=== PATIENT | female | born 1955 | race Caucasian/White ===

== ENCOUNTER 2016-03-05 10:04 | Inpatient (IN) | payer OTHER ==
[2016-03-05] MEDS ORDERED: SODIUM CHLORIDE 0.9% 10 ML FLUSH FLUSH PRN (10:22)
[2016-03-05 10:38] LABS: MPV 8.3 fL (7.4-10.4)
[2016-03-05 10:52] LABS: BLOOD UREA NITROGEN 13 MG/DL (7-17); CALCIUM 9.3 MG/DL (8.4-10.2); CALCULATED OSMOLALITY 271 MOs/Kg (270-290); CHLORIDE 104 mEq/L (98-107); GLUCOSE 158 MG/DL (70-99); SODIUM LEVEL 139 mEq/L (137-146); TOTAL PROTEIN 7.6 G/DL (6.3-8.2)
[2016-03-05 11:01] LABS: PARTIAL THROMB. TIME 24.7 SEC (22-35)
[2016-03-05 11:18] LABS: SEG NEUTROPHIL 89 % (45-76)
--- NOTE | 2016-03-05 11:30 | DIRPT ---
COUGH CLINICAL DATA: Cough, congestion, shortness of breath. EXAM: CHEST 2 VIEW COMPARISON: Chest x-ray dated 02/26/2016. FINDINGS: New opacity within the left mid lung region is highly suspicious for pneumonia. Lungs otherwise clear. No pleural effusion. No pneumothorax. Lung volumes are hyperexpanded suggesting COPD. Heart size is normal. Osseous structures about the chest are unremarkable. IMPRESSION: 1. New opacity within the left mid lung, atelectasis versus pneumonia, favor pneumonia. 2. Hyperexpanded lungs suggesting COPD. Electronically Signed By: Corby James M.D. On: 03/05/2016 11:28
[2016-03-05] MEDS ORDERED: CEFTRIAXONE 1 GM in D5W 100 ML IV ONE (11:46)
[2016-03-05] MEDS ORDERED: AZITHROMYCIN 500 MG in D5W 250 ML IV ONE (11:46)
[2016-03-05] MEDS ORDERED: MORPHINE 4 MG/ML INJECTION IV ONE (11:46)
[2016-03-05] MEDS ORDERED: NS 1,000 ML IV ONE ×2 (11:47→12:01)
--- NOTE | 2016-03-05 11:48 | EDPRACDOC ---
<George Mason - Last Filed: 03/05/16 15:29> - General Information Information Source: Patient, Family Mode of Arrival: Car - History of Present Illness Onset: 1 DAY HPI: PT PRESENTS TODAY WITH COUGH/CONGESTION, FATIGUE, CHEST WALL PAIN X WEEKS. STATES SHE WAS SEEN AT PCP AND HAD CXR DONE THAT WAS NEGATIVE. DENIES HUSTON, FEVER , ABD PAIN, N/V/D. NO APPARENT DISTRESS. PT COPD AND CONTINUES TO SMOKE. Chest Pain Location: Reports: Left Chest Pain Radiation: Reports: None Symptoms Occur: Reports: Gradually, With light exertion Cardiac Risk Factors: Reports: Smoker, Hyperlipidemia PE Risk Factors: Reports: None Medications within 24 Hours: Reports: Aspirin Prehospital Care: Reports: None Pain Came On: Reports: Gradually Pain Status: Present Now Pain Description: Reports: Sharp, Stabbing Pain Severity: Moderate Pain Worsens With: Reports: Coughing, Movement Pain Improves With: Reports: Rest, Other (ASA) Associated Signs and Symptoms: Reports: SOB <Qi Davis - Last Filed: 03/05/16 16:12> - General Information Chief Complaint: Chest Pain Stated Complaint: CP/ DIFFICULTY BREATHING Time Seen by Provider: 03/05/16 10:21 Home Medications: Home Medications Cholecalciferol (Vitamin D3) [D-2000] 1,000 unit PO DAILY 07/22/13 Mometasone/Formoterol [Dulera 200 Mcg/5 Mcg Inhaler] 2 puff IH BID PRN 07/22/13 Multivitamin [Daily Vitamin] 1 each PO DAILY 07/22/13 Acetaminophen with Codeine [TYLENOL WITH CODEINE; Capital with Codeine] 5 ml PO Q4-6H PRN #120 ml 03/05/16 Albuterol Sulfate [Proventil Hfa] 1 - 2 puff INH Q4H PRN #1 each 03/05/16 Cefdinir 300 mg PO BID #20 capsule 03/05/16 Pravastatin Sodium 10 mg PO HS 03/05/16 Prednisone [Deltasone, Orasone] 2 tabs PO DAILY #20 tab 03/05/16 Allergies/Adverse Reactions: Allergies Allergy/AdvReac Type Severity Reaction Status Date / Time Sulfa (Sulfonamide Allergy Rash-Genera Verified 03/05/16 10:18 Antibiotics) [facility] Past Medical History - History Reviewed Yes Nurses notes reviewed and agree except as marked - Patient Medical History Cardiac History: Reports: Hypercholesterolemia Respiratory History: Reports: COPD Psychological History: Denies: Depression Systemic History: Denies: Cancer - Social Medical History Smoking Status: Heavy tobacco smoker (5 or more cigarettes/day or daily pipe/ cigar) <Qi Davis - Last Filed: 03/05/16 16:12> EDM Review of Systems - Review of Systems ROS Negative Except as Marked: Yes All systems reviewed and were negative except as marked Constitutional: Fatigue, Weakness Eyes: No Symptoms Reported Ears: No Symptoms Reported Throat: No Symptoms Reported Nose: No Symptoms Reported Respiratory: Cough, Shortness of Breath Cardiovascular: Chest Pain Gastrointestinal: No Symptoms Reported Neurological: No Symptoms Reported Musculoskeletal: Chestwall Integumentary: No Symptoms Reported <Qi Davis - Last Filed: 03/05/16 16:12> - Physical Exam Last recorded Vital Signs: Last Vital Signs Temp 98.8 F 03/05/16 10:10 Pulse 103 03/05/16 13:47 Resp 24 03/05/16 13:47 BP 103/57 L 03/05/16 13:47 Pulse Ox 94 03/05/16 13:47 Oxygen Pulse Oxygen Saturation 94 O2 Device Nasal Cannula Oxygen Flow Rate 2 Fraction of Inspired Oxygen ( FIO2) <George Mason - Last Filed: 03/05/16 15:29> - Physical Exam Constitutional: Alert (Awake), No apparent distress Oriented to: Time, Person, Place Last recorded Vital Signs: Last Vital Signs Temp 98.8 F 03/05/16 10:10 Pulse 88 03/05/16 11:34 Resp 18 03/05/16 10:26 BP 100/57 L 03/05/16 11:34 Pulse Ox 94 03/05/16 11:34 Oxygen Pulse Oxygen Saturation 94 O2 Device Room Air Oxygen Flow Rate Fraction of Inspired Oxygen ( FIO2) - HEENT Head: Normal Eye Exam: Normal Oropharynx: Normal Tympanic Membrane: Normal ENT EAC: Normal Nose: No Symptoms Reported Neck: Normal, Denies Pain, Midline - Respiratory/Cardiovascular Respiratory: Normal - CTA Cardiovascular: Normal - GI Palpation: Normal Tenderness: Non tender - Musculoskeletal Back: Normal Extremities: Normal - Integumentary Skin: Normal Lymphatics: Normal - Neurologic Cerebellar: Normal Mood Description: Normal Thought: Coherent Perception: Normal <Susan,Qi K - Last Filed: 03/05/16 16:12> ED Chest Pain Exam - Respiratory/Cardiovascular Respiratory: Normal - CTA Cardiovascular/Chest: Normal Radial Pulse: Normal Chest Palpation: Normal <Qi Davis - Last Filed: 03/05/16 16:12> - Results 03/05/16 10:30 03/05/16 10:30 WBC 22.9 xk/uL (3.8-10.8) H 03/05/16 10:30 RBC 4.31 xM/uL (4.20-5.40) 03/05/16 10:30 Hgb 13.6 g/dL (12.0-16.0) 03/05/16 10:30 Hct 40.7 % (36-47) 03/05/16 10:30 MCV 95 fL (81-99) 03/05/16 10:30 MCH 31.6 pg (27-32) 03/05/16 10:30 MCHC 33.4 g/dl (33-36) 03/05/16 10:30 RDW 12.7 % (11.5-14.5) 03/05/16 10:30 Plt Count 227 xk/uL (130-400) 03/05/16 10:30 MPV 8.3 fL (7.4-10.4) 03/05/16 10:30 Neut % (Auto) Cancelled 03/05/16 10:30 Lymph % (Auto) Cancelled 03/05/16 10:30 [place] % (Auto) Cancelled 03/05/16 10:30 Eos % (Auto) Cancelled 03/05/16 10:30 Baso % (Auto) Cancelled 03/05/16 10:30 Absolute Neuts (auto) Cancelled 03/05/16 10:30 Absolute Lymphs (auto) Cancelled 03/05/16 10:30 Seg Neuts % (Manual) 89 % (45-76) H 03/05/16 10:30 Band Neutrophils % 0 % (0-5) 03/05/16 10:30 Lymphocytes % (Manual) 10 % (17-44) L 03/05/16 10:30 Monocytes % (Manual) 1 % (0-10) 03/05/16 10:30 Absolute Neutrophils 20.38 xk/uL (1.7-8.2) H 03/05/16 10:30 Absolute Lymphocytes 2.29 xk/uL (0.65-4.75) 03/05/16 10:30 Platelet Estimate Norm (NORMAL) 03/05/16 10:30 RBC Morphology Norm 03/05/16 10:30 PT 10.4 SEC (9.2-11.2) 03/05/16 10:30 INR 1.0 03/05/16 10:30 APTT 24.7 SEC (22-35) 03/05/16 10:30 Puncture Site Left radial 03/05/16 12:01 pH 7.460 pH UNITS (7.35-7.45) H 03/05/16 12:01 pCO2 32.0 mmHg (35-45) L 03/05/16 12:01 pO2 74.0 mmHg (80-100) L 03/05/16 12:01 HCO3 22.8 MMOL/L (22-26) 03/05/16 12:01 Total CO2 23.8 MMOL/L (23-27) 03/05/16 12:01 Base Excess -0.3 (+/- 2) 03/05/16 12:01 FiO2 % 21% 03/05/16 12:01 Specimen Drawn By Kasgl 03/05/16 12:01 Sodium 139 mEq/L (137-146) 03/05/16 10:30 Potassium 4.1 mEq/L (3.5-5.1) 03/05/16 10:30 Chloride 104 mEq/L (98-107) 03/05/16 10:30 Carbon Dioxide 23 mMOL/L (22-33) 03/05/16 10:30 Anion Gap 16 mEq/L (8-16) 03/05/16 10:30 BUN 13 MG/DL (7-17) 03/05/16 10:30 Creatinine 0.80 MG/DL (0.52-1.04) 03/05/16 10:30 Estimated GFR (MDRD) > 60 mL/min (>=60) 03/05/16 10:30 Glucose 158 MG/DL (70-99) H 03/05/16 10:30 Calculated Osmolality 271 MOs/Kg (270-290) 03/05/16 10:30 Calcium 9.3 MG/DL (8.4-10.2) 03/05/16 10:30 Total Bilirubin 0.5 MG/DL (0.2-1.3) 03/05/16 10:30 AST 24 IU/L (14-36) 03/05/16 10:30 ALT 28 IU/L (9-52) 03/05/16 10:30 Alkaline Phosphatase 97 IU/L (55-165) 03/05/16 10:30 Troponin I < 0.01 ng/mL (<.04) 03/05/16 13:00 Total Protein 7.6 G/DL (6.3-8.2) 03/05/16 10:30 Albumin 4.4 G/DL (3.5-5.0) 03/05/16 10:30 Urine Color Yellow 03/05/16 13:45 Urine Clarity Clear 03/05/16 13:45 Urine pH 6.0 (5.0-8.0) 03/05/16 13:45 Ur Specific [place] 1.010 (1.003-1.035) 03/05/16 13:45 Urine Protein Neg (NEG/TRACE) 03/05/16 13:45 Urine Glucose (UA) Neg (NEGATIVE) 03/05/16 13:45 Urine Ketones Neg (NEGATIVE) 03/05/16 13:45 Urine Occult Blood Neg (NEG/TRACE) 03/05/16 13:45 Urine Nitrite Neg (NEGATIVE) 03/05/16 13:45 Urine Bilirubin Neg (NEGATIVE) 03/05/16 13:45 Urine Urobilinogen 0.2 MG/DL (0-1) 03/05/16 13:45 Ur Leukocyte Esterase Neg (NEGATIVE) 03/05/16 13:45 Urine RBC 0-2 (0-5) 03/05/16 13:45 Urine WBC 0-2 (0-5) 03/05/16 13:45 Ur Epithelial Cells Occ 03/05/16 13:45 Urine Bacteria Few (NEG/FEW) 03/05/16 13:45 Lab Results 03/05/16 03/05/16 03/05/16 13:45 13:00 12:01 WBC RBC Hgb Hct MCV MCH MCHC RDW Plt Count MPV Neut % (Auto) Lymph % (Auto) [place] % (Auto) Eos % (Auto) Baso % (Auto) Absolute Neuts (auto) Absolute Lymphs (auto) Seg Neuts % (Manual) Band Neutrophils % Lymphocytes % (Manual) Monocytes % (Manual) Absolute Neutrophils Absolute Lymphocytes Platelet Estimate RBC Morphology PT INR APTT Puncture Site Left radial pH 7.460 H pCO2 32.0 L pO2 74.0 L HCO3 22.8 Total CO2 23.8 Base Excess -0.3 FiO2 % 21% Specimen Drawn By Kasgl Sodium Potassium Chloride Carbon Dioxide Anion Gap BUN Creatinine Estimated GFR (MDRD) Glucose Calculated Osmolality Calcium Total Bilirubin AST ALT Alkaline Phosphatase Troponin I < 0.01 Total Protein Albumin Urine Color Yellow Urine Clarity Clear Urine pH 6.0 Ur Specific [place] 1.010 Urine Protein Neg Urine Glucose (UA) Neg Urine Ketones Neg Urine Occult Blood Neg Urine Nitrite Neg Urine Bilirubin Neg Urine Urobilinogen 0.2 Ur Leukocyte Esterase Neg Urine RBC 0-2 Urine WBC 0-2 Ur Epithelial Cells Occ Urine Bacteria Few 03/05/16 03/05/16 03/05/16 10:30 10:30 10:30 WBC 22.9 H RBC 4.31 Hgb 13.6 Hct 40.7 MCV 95 MCH 31.6 MCHC 33.4 RDW 12.7 Plt Count 227 MPV 8.3 Neut % (Auto) Cancelled Lymph % (Auto) Cancelled [place] % (Auto) Cancelled Eos % (Auto) Cancelled Baso % (Auto) Cancelled Absolute Neuts (auto) Cancelled Absolute Lymphs (auto) Cancelled Seg Neuts % (Manual) 89 H Band Neutrophils % 0 Lymphocytes % (Manual) 10 L Monocytes % (Manual) 1 Absolute Neutrophils 20.38 H Absolute Lymphocytes 2.29 Platelet Estimate Norm RBC Morphology Norm PT 10.4 INR 1.0 APTT 24.7 Puncture Site pH pCO2 pO2 HCO3 Total CO2 Base Excess FiO2 % Specimen Drawn By Sodium 139 Potassium 4.1 Chloride 104 Carbon Dioxide 23 Anion Gap 16 BUN 13 Creatinine 0.80 Estimated GFR (MDRD) > 60 Glucose 158 H Calculated Osmolality 271 Calcium 9.3 Total Bilirubin 0.5 AST 24 ALT 28 Alkaline Phosphatase 97 Troponin I < 0.01 Total Protein 7.6 Albumin 4.4 Urine Color Urine Clarity Urine pH Ur Specific [place] Urine Protein Urine Glucose (UA) Urine Ketones Urine Occult Blood Urine Nitrite Urine Bilirubin Urine Urobilinogen Ur Leukocyte Esterase Urine RBC Urine WBC Ur Epithelial Cells Urine Bacteria Laboratory Results - last 24 hr 03/05/16 03/05/16 03/05/16 10:30 10:30 10:30 WBC 22.9 H RBC 4.31 Hgb 13.6 Hct 40.7 MCV 95 MCH 31.6 MCHC 33.4 RDW 12.7 Plt Count 227 MPV 8.3 Neut % (Auto) Cancelled Lymph % (Auto) Cancelled [place] % (Auto) Cancelled Eos % (Auto) Cancelled Baso % (Auto) Cancelled Absolute Neuts (auto) Cancelled Absolute Lymphs (auto) Cancelled Seg Neuts % (Manual) 89 H Band Neutrophils % 0 Lymphocytes % (Manual) 10 L Monocytes % (Manual) 1 Absolute Neutrophils 20.38 H Absolute Lymphocytes 2.29 Platelet Estimate Norm RBC Morphology Norm PT 10.4 INR 1.0 APTT 24.7 Puncture Site pH pCO2 pO2 HCO3 Total CO2 Base Excess FiO2 % Specimen Drawn By Sodium 139 Potassium 4.1 Chloride 104 Carbon Dioxide 23 Anion Gap 16 BUN 13 Creatinine 0.80 Estimated GFR (MDRD) > 60 Glucose 158 H Calculated Osmolality 271 Calcium 9.3 Total Bilirubin 0.5 AST 24 ALT 28 Alkaline Phosphatase 97 Troponin I < 0.01 Total Protein 7.6 Albumin 4.4 Urine Color Urine Clarity Urine pH Ur Specific [place] Urine Protein Urine Glucose (UA) Urine Ketones Urine Occult Blood Urine Nitrite Urine Bilirubin Urine Urobilinogen Ur Leukocyte Esterase Urine RBC Urine WBC Ur Epithelial Cells Urine Bacteria 03/05/16 03/05/16 03/05/16 12:01 13:00 13:45 WBC RBC Hgb Hct MCV MCH MCHC RDW Plt Count MPV Neut % (Auto) Lymph % (Auto) [place] % (Auto) Eos % (Auto) Baso % (Auto) Absolute Neuts (auto) Absolute Lymphs (auto) Seg Neuts % (Manual) Band Neutrophils % Lymphocytes % (Manual) Monocytes % (Manual) Absolute Neutrophils Absolute Lymphocytes Platelet Estimate RBC Morphology PT INR APTT Puncture Site Left radial pH 7.460 H pCO2 32.0 L pO2 74.0 L HCO3 22.8 Total CO2 23.8 Base Excess -0.3 FiO2 % 21% Specimen Drawn By Kasgl Sodium Potassium Chloride Carbon Dioxide Anion Gap BUN Creatinine Estimated GFR (MDRD) Glucose Calculated Osmolality Calcium Total Bilirubin AST ALT Alkaline Phosphatase Troponin I < 0.01 Total Protein Albumin Urine Color Yellow Urine Clarity Clear Urine pH 6.0 Ur Specific [place] 1.010 Urine Protein Neg Urine Glucose (UA) Neg Urine Ketones Neg Urine Occult Blood Neg Urine Nitrite Neg Urine Bilirubin Neg Urine Urobilinogen 0.2 Ur Leukocyte Esterase Neg Urine RBC 0-2 Urine WBC 0-2 Ur Epithelial Cells Occ Urine Bacteria Few Laboratory Results 03/05/16 10:30 03/05/16 10:30 <George Mason - Last Filed: 03/05/16 15:29> - Action ASA given in the ED: No Aspirin therapy held due to: Other-specify below* (PT TOOK AT HOME) - Re-evaluation Re-evaluation 1 Re-evaluation Time: 12:07 PT BEGAN HAVING SVT AT THIS TIME; PT HAS PMH OF AND HAS NEEDED ADENOSINE IN THE PAST. DR. MASON NOTIFIED. Re-evaluation 2 Re-evaluation Time: 12:23 ADENOSINE 6 MG GIVEN AND PT TOLERATED WELL; PT CONVERTED TO SINUS TACH AT RATE OF 107 BPM. Re-evaluation 3 Re-evaluation Time: 13:37 PT RESTING. NO REPEAT EPISODES OF SVT SINCE FIRST DOSE OF ADENOSINE. PT HAS KNOWN HISTORY OF SAME. CASE DISCUSSED WITH DR. MASON AND PT OK FOR HOME. Re-evaluation 4 Re-evaluation Time: 16:11 UPON DISCHARGE, PT RETURNED TO SVT AND BECAME HYPOXIC AT 88%; SHE DID RESOLVE AGAIN WITH 6 MG OF ADENOSINE, BUT IT IS CLEAR AT THIS POINT THAT PT WILL NEED TO STAY FOR ADMISSION. - Results 03/05/16 10:30 03/05/16 10:30 WBC 22.9 xk/uL (3.8-10.8) H 03/05/16 10:30 RBC 4.31 xM/uL (4.20-5.40) 03/05/16 10:30 Hgb 13.6 g/dL (12.0-16.0) 03/05/16 10:30 Hct 40.7 % (36-47) 03/05/16 10:30 MCV 95 fL (81-99) 03/05/16 10:30 MCH 31.6 pg (27-32) 03/05/16 10:30 MCHC 33.4 g/dl (33-36) 03/05/16 10:30 RDW 12.7 % (11.5-14.5) 03/05/16 10:30 Plt Count 227 xk/uL (130-400) 03/05/16 10:30 MPV 8.3 fL (7.4-10.4) 03/05/16 10:30 Neut % (Auto) Cancelled 03/05/16 10:30 Lymph % (Auto) Cancelled 03/05/16 10:30 [place] % (Auto) Cancelled 03/05/16 10:30 Eos % (Auto) Cancelled 03/05/16 10:30 Baso % (Auto) Cancelled 03/05/16 10:30 Absolute Neuts (auto) Cancelled 03/05/16 10:30 Absolute Lymphs (auto) Cancelled 03/05/16 10:30 Seg Neuts % (Manual) 89 % (45-76) H 03/05/16 10:30 Band Neutrophils % 0 % (0-5) 03/05/16 10:30 Lymphocytes % (Manual) 10 % (17-44) L 03/05/16 10:30 Monocytes % (Manual) 1 % (0-10) 03/05/16 10:30 Absolute Neutrophils 20.38 xk/uL (1.7-8.2) H 03/05/16 10:30 Absolute Lymphocytes 2.29 xk/uL (0.65-4.75) 03/05/16 10:30 Platelet Estimate Norm (NORMAL) 03/05/16 10:30 RBC Morphology Norm 03/05/16 10:30 PT 10.4 SEC (9.2-11.2) 03/05/16 10:30 INR 1.0 03/05/16 10:30 APTT 24.7 SEC (22-35) 03/05/16 10:30 Sodium 139 mEq/L (137-146) 03/05/16 10:30 Potassium 4.1 mEq/L (3.5-5.1) 03/05/16 10:30 Chloride 104 mEq/L (98-107) 03/05/16 10:30 Carbon Dioxide 23 mMOL/L (22-33) 03/05/16 10:30 Anion Gap 16 mEq/L (8-16) 03/05/16 10:30 BUN 13 MG/DL (7-17) 03/05/16 10:30 Creatinine 0.80 MG/DL (0.52-1.04) 03/05/16 10:30 Estimated GFR (MDRD) > 60 mL/min (>=60) 03/05/16 10:30 Glucose 158 MG/DL (70-99) H 03/05/16 10:30 Calculated Osmolality 271 MOs/Kg (270-290) 03/05/16 10:30 Calcium 9.3 MG/DL (8.4-10.2) 03/05/16 10:30 Total Bilirubin 0.5 MG/DL (0.2-1.3) 03/05/16 10:30 AST 24 IU/L (14-36) 03/05/16 10:30 ALT 28 IU/L (9-52) 03/05/16 10:30 Alkaline Phosphatase 97 IU/L (55-165) 03/05/16 10:30 Troponin I < 0.01 ng/mL (<.04) 03/05/16 10:30 Total Protein 7.6 G/DL (6.3-8.2) 03/05/16 10:30 Albumin 4.4 G/DL (3.5-5.0) 03/05/16 10:30 Lab Results 03/05/16 03/05/16 03/05/16 10:30 10:30 10:30 WBC 22.9 H RBC 4.31 Hgb 13.6 Hct 40.7 MCV 95 MCH 31.6 MCHC 33.4 RDW 12.7 Plt Count 227 MPV 8.3 Neut % (Auto) Cancelled Lymph % (Auto) Cancelled [place] % (Auto) Cancelled Eos % (Auto) Cancelled Baso % (Auto) Cancelled Absolute Neuts (auto) Cancelled Absolute Lymphs (auto) Cancelled Seg Neuts % (Manual) 89 H Band Neutrophils % 0 Lymphocytes % (Manual) 10 L Monocytes % (Manual) 1 Absolute Neutrophils 20.38 H Absolute Lymphocytes 2.29 Platelet Estimate Norm RBC Morphology Norm PT 10.4 INR 1.0 APTT 24.7 Sodium 139 Potassium 4.1 Chloride 104 Carbon Dioxide 23 Anion Gap 16 BUN 13 Creatinine 0.80 Estimated GFR (MDRD) > 60 Glucose 158 H Calculated Osmolality 271 Calcium 9.3 Total Bilirubin 0.5 AST 24 ALT 28 Alkaline Phosphatase 97 Troponin I < 0.01 Total Protein 7.6 Albumin 4.4 Laboratory Results - last 24 hr 03/05/16 03/05/16 03/05/16 10:30 10:30 10:30 WBC 22.9 H RBC 4.31 Hgb 13.6 Hct 40.7 MCV 95 MCH 31.6 MCHC 33.4 RDW 12.7 Plt Count 227 MPV 8.3 Neut % (Auto) Cancelled Lymph % (Auto) Cancelled [place] % (Auto) Cancelled Eos % (Auto) Cancelled Baso % (Auto) Cancelled Absolute Neuts (auto) Cancelled Absolute Lymphs (auto) Cancelled Seg Neuts % (Manual) 89 H Band Neutrophils % 0 Lymphocytes % (Manual) 10 L Monocytes % (Manual) 1 Absolute Neutrophils 20.38 H Absolute Lymphocytes 2.29 Platelet Estimate Norm RBC Morphology Norm PT 10.4 INR 1.0 APTT 24.7 Sodium 139 Potassium 4.1 Chloride 104 Carbon Dioxide 23 Anion Gap 16 BUN 13 Creatinine 0.80 Estimated GFR (MDRD) > 60 Glucose 158 H Calculated Osmolality 271 Calcium 9.3 Total Bilirubin 0.5 AST 24 ALT 28 Alkaline Phosphatase 97 Troponin I < 0.01 Total Protein 7.6 Albumin 4.4 Laboratory Results 03/05/16 10:30 03/05/16 10:30 - EKG EKG #1 EKG Time: 10:12 -: Yes EKG interpreted by me Rate: bpm: 102 [place]: Normal Rhythm: ST Block: None Hypertrophy: LAE, ANAI ST: Normal Comparison: 07/22/13 EKG #2 EKG Time: 12:13 -: Yes EKG interpreted by nc Rate: bpm: 160 [place]: Normal Rhythm: PSVT Block: None Hypertrophy: None ST: Normal EKG #3 EKG Time: 12:15 -: Yes EKG interpreted by nc Rate: bpm: 107 [place]: Normal Rhythm: ST Block: None Hypertrophy: None ST: Normal EKG #4 EKG Time: 15:32 -: Yes EKG interpreted by nc Rate: bpm: 161 [place]: Normal Rhythm: PSVT Block: None Hypertrophy: None ST: Normal EKG #5 EKG Time: 15:35 -: Yes EKG interpreted by nc Rate: bpm: 104 [place]: Normal Rhythm: ST Block: None Hypertrophy: None ST: Normal <Qi Davsi - Last Filed: 03/05/16 16:12> - Departure Disposition: Admit IP To This Hospital Decision to Admit Time: 15:30 Decision to admit date: 03/05/16 Decision to admit: from ED - Physician Consulted Hospitalist Time Called: 15:30 Provider Called: Bassem Shelton Time [employer] Returned Call: 15:33 <George Mason - Last Filed: 03/05/16 15:29> Decision Time to Discharge: 13:38 - Departure Disposition: Home Education/Counseling Given To: Patient Education/Counseling Given Regarding: Diagnosis, Treatment, Follow Up <SusanQi - Last Filed: 03/05/16 16:12> - Departure Condition: Stable Final Diagnosis: Supraventricular tachycardia Pneumonia Qualifiers: Pneumonia type: due to unspecified organism Laterality: left Lung location: lower lobe of lung Qualified Code(s): J18.1 - Lobar pneumonia, unspecified organism Instructions: Community Acquired Pneumonia (ED) Referrals: None,No Provider [Primary Care Provider] - One Week Prescriptions: Acetaminophen with Codeine [TYLENOL WITH CODEINE; [place] with Codeine] 5 ml PO Q4-6H PRN #120 ml PRN Reason: Pain Albuterol Sulfate [Proventil Hfa] 1 - 2 puff INH Q4H PRN #1 each PRN Reason: Shortness Of Breath Cefdinir 300 mg PO BID #20 capsule Prednisone [Deltasone, Orasone] 2 tabs PO DAILY #20 tab Additional Instructions: REST AND PLENTY OF FLUIDS. IF YOU WORSEN, RETURN TO ED OR CALL PCP.
[2016-03-05 12:04] LABS: ALLEN'S TEST PASS; BEb -0.3 (+/- 2); TCO2 23.8 MMOL/L (23-27)
[2016-03-05 12:05] LABS: ABG Draw Site Left Radial
[2016-03-05] MEDS ORDERED: ADENOSINE 6 MG/2 ML SYR IV ONE ×3 (12:07→15:28)
[2016-03-05 14:03] LABS: RBC/URINE 0-2 (0-5); WBC/URINE 0-2 (0-5)
[2016-03-05 14:08] LABS: LEUKOCYTES/URINE NEG (NEGATIVE); NITRITE/URINE NEG (NEGATIVE); URINE OCCULT BLOOD NEG (NEG/TRACE)
[2016-03-05] MEDS ORDERED: [UNRECOGNIZED DRUG - OTHER] IH PRN (15:40)
[2016-03-05] MEDS ORDERED: FORMOTEROL IH PRN (15:40)
[2016-03-05] MEDS ORDERED: ONDANSETRON HCL 4 MG/2 ML VIAL IV PRN (15:40)
[2016-03-05] MEDS ORDERED: MOMETASONE IH PRN (15:40)
[2016-03-05] MEDS ORDERED: BUDESONIDE 0.5 MG NEB NEB PRN (15:56)
[2016-03-05] MEDS ORDERED: ALBUTEROL 0.083% 3 ML NEB NEB PRN (15:57)
--- NOTE | 2016-03-05 16:21 | HISTPHYS ---
- Chief Complaint Chest pain - History of Present Illness This is a 61-year-old female with a history of COPD, she is an active smoker and she is being admitted to the hospital due to community-acquired pneumonia with a chief complaint of chest pain. She tells me that his chest pain started a few days ago, it is right in the middle of her chest, does not radiate, she is unable to tell me whether it is sharp, dull, stabbing or aching. The pain is better since she has been in the hospital. She says that she has a known history of atrial tachycardia, is unsure whether the pain correlates with when she is tachycardic. She says her chest is slightly tender to palpation. She says she has had associated cough for the last couple of weeks, with some yellow sputum production. Denies any fevers or chills, or particular shortness of breath that is worse than usual. She denies any abdominal pain, nausea, vomiting, weight loss or gain, changes in bowel habits or any dysuria or rashes on the skin. No sick contacts or travel recently. - Medical History Cardiac History: Reports: Hypercholesterolemia Respiratory History: Reports: COPD Systemic History: Denies: Cancer Psychological History: Denies: Depression - Medictions/Allergies Allergies Sulfa (Sulfonamide Antibiotics) Allergy (Verified 03/05/16 10:18) Rash-Generalized Home Medications Cholecalciferol (Vitamin D3) [D-2000] 1,000 unit PO DAILY 07/22/13 Mometasone/Formoterol [Dulera 200 Mcg/5 Mcg Inhaler] 2 puff IH BID PRN 07/22/13 Multivitamin [Daily Vitamin] 1 each PO DAILY 07/22/13 Acetaminophen with Codeine [TYLENOL WITH CODEINE; [employer] with Codeine] 5 ml PO Q4-6H PRN #120 ml 03/05/16 Albuterol Sulfate [Proventil Hfa] 1 - 2 puff INH Q4H PRN #1 each 03/05/16 Cefdinir 300 mg PO BID #20 capsule 03/05/16 Pravastatin Sodium 10 mg PO HS 03/05/16 Prednisone [Deltasone, Orasone] 2 tabs PO DAILY #20 tab 03/05/16 - Social History Smoking Status: Heavy tobacco smoker (5 or more cigarettes/day or daily pipe/ cigar) - Review of Systems Constitutional: No Symptoms Reported (No fever, chills, wt loss/gain, fatigue) Eyes: No Symptoms Reported (No blurry vision, visual changes) Respiratory: No Symptoms Reported (No cough,wheezing or shortness of breath) Cardiovascular: No Symptoms Reported (No Chest pain, palpitations) Gastrointestinal: No Symptoms Reported (No abdominal pain, nausea, vomiting, diarrhea or constipation) Genitourinary: No Symptoms Reported (No dysuria) Musculoskeletal:: No Symptoms Reported (No headache, dizzness, seizures or focal weakness) Integumentary: No Symptoms Reported (No rashes or lesions) Hematologic: No Symptoms Reported (No bleeding or easy bruising) Endocrine: No Symptoms Reported (No polyuria) - Physical Exam Vital Signs: Initial Vitals Temperature 98.8 F 03/05/16 10:10 Pulse Rate 106 03/05/16 10:10 Respiratory Rate 24 03/05/16 10:10 Blood Pressure 92/54 L 03/05/16 10:10 Pulse Oxygen Saturation 95 03/05/16 10:10 Constitutional: No apparent distress, Alert Oriented to: Time, Person, Place - HEENT Head: Normal (normocephalic,atraumatic, trachea midline) Eye: Normal (EOMI, Sclera white) Oropharynx: Normal (moist) Nose: No Symptoms Reported (without discharge or bleeding) Respiratory: Diminished, Rales. negative: Rhonchi, Wheezes Cardiovascular: Normal (RRR, no murmurs, rubs or gallops) Chest is nontender to palpation. No overlying rash or skin lesion. - GI Palpation: Normal (soft, non distended and nontender) - Musculoskeletal Extremities: Normal (normal tone, no cyanosis or edema) - Integumentary Skin: Normal (no rashes or lesions) - Neurologic Cranial Nerve: Normal (CN II-XII intact) Mood Description: Normal (Fully oriented and appropiate affect) - Focused CV Perfusion Exam Vital Signs: Last Vital Signs Temp 98.8 F 03/05/16 10:10 Pulse 98 03/05/16 15:40 Resp 20 03/05/16 15:40 BP 97/50 L 03/05/16 15:40 Pulse Ox 95 03/05/16 15:40 - Lab Results Laboratory Tests 03/05/16 03/05/16 03/05/16 10:30 10:30 10:30 WBC 22.9 H Hgb 13.6 Hct 40.7 Plt Count 227 INR 1.0 pH pCO2 pO2 Potassium 4.1 BUN 13 Creatinine 0.80 AST 24 ALT 28 Alkaline Phosphatase 97 Troponin I 03/05/16 03/05/16 12:01 13:00 WBC Hgb Hct Plt Count INR pH 7.460 H pCO2 32.0 L pO2 74.0 L Potassium BUN Creatinine AST ALT Alkaline Phosphatase Troponin I < 0.01 - Diagnostic Findings Chest x-ray: New opacity within the left mid lung region is highly suspicious for pneumonia. Lungs otherwise clear. No pleural effusion. No pneumothorax. Lung volumes are hyperexpanded suggesting COPD. Heart size is normal. Osseous structures about the chest are unremarkable. - Assessment (1) Pneumonia J18.9 - PNEUMONIA, UNSPECIFIED ORGANISM Acute Qualifiers: Pneumonia type: due to unspecified organism Aspiration pneumonia type: A Laterality: left Lung location: lower lobe of lung Qualified Code(s): J18.1 - Lobar pneumonia, unspecified organism She is a community-acquired left lobe pneumonia. Criteria for diagnosis is chest x-ray abnormality, increased cough and sputum production. Treat empirically with IV Rocephin and azithromycin, in addition to aggressive pulmonary toileting by respiratory therapy as mentioned below. Evidence based care pneumonia order set has been utilized. Pneumonia education will also be provided. (2) COPD exacerbation J44.1 - CHRONIC OBSTRUCTIVE PULMONARY DISEASE W (ACUTE) EXACERBATION Acute Patient is an active smoker. Not on oxygen at home. She will be provided supplemental oxygen, IV steroid dose and taper, as well as empiric IV antibiotics as mentioned above for her community-acquired pneumonia. Respiratory therapy has been consulted, for aggressive pulmonary toileting. (3) Supraventricular tachycardia I47.1 - SUPRAVENTRICULAR TACHYCARDIA Acute She has a known history of SVT, heart rate is now under control after several doses of amiodarone in the emergency department. She also be given copious IV fluids. Due to her relative hypotension, will need to avoid beta blockade at this time. She has seen Dr. oRuse in the past due to her SVT, if this becomes a major issue Cardiology could be consulted while in the hospital. (4) Chest pain R07.9 - CHEST PAIN, UNSPECIFIED Acute Qualifiers: Chest pain type: C Ischemic chest pain type: I Unlikely to be cardiac given the fact that it is clearly worse with coughing or deep inspiration. Troponins are also negative. Case Care Discussed with: Patient, Family, Nursing Staff Total Time: 49
[2016-03-05] MEDS: NS/KCl 20 mEq 1,000 ML IV SCH ×2 (17:09→22:08)
[2016-03-05] MEDS: METHYLPREDNISOLONE 125 MG/2 ML VIAL IV SCH ×2 (17:09→20:48)
[2016-03-05] MEDS: ENOXAPARIN 40 MG/0.4 ML PFS SQ SCH (17:10)
[2016-03-05] MEDS: ACETAMINOPHEN 325 MG/TAB TABLET PO PRN (17:17)
[2016-03-05] MEDS ORDERED: Vaccine Screening Complete SCH (19:00)
[2016-03-05] MEDS: PRAVASTATIN 20 MG TAB PO SCH (20:47)
[2016-03-05] MEDS ORDERED: Non-Formulary Medication ITEM (Pravastatin Sodium [Pravastatin Sodium] 10 MG) PO SCH (21:00)
[2016-03-06] MEDS: NS/KCl 20 mEq 1,000 ML IV SCH ×3 (02:46→11:48)
[2016-03-06] MEDS: METHYLPREDNISOLONE 125 MG/2 ML VIAL IV SCH ×4 (03:49→21:23)
[2016-03-06 03:50] LABS: MPV 9.3 fL (7.4-10.4)
[2016-03-06 03:59] LABS: BLOOD UREA NITROGEN 11 MG/DL (7-17); CALCIUM 8.5 MG/DL (8.4-10.2); CALCULATED OSMOLALITY 272 MOs/Kg (270-290); CHLORIDE 113 mEq/L (98-107); GLUCOSE 130 MG/DL (70-99); SODIUM LEVEL 141 mEq/L (137-146)
[2016-03-06 04:02] VITALS: BMI 19.3
[2016-03-06] MEDS ORDERED: PNEUMOCOCCAL 0.5 ML VIAL IM ONE (08:00)
[2016-03-06] MEDS: AZITHROMYCIN 500 MG in D5W 250 ML IV SCH (08:44)
--- NOTE | 2016-03-06 10:48 | GENMEDPROG ---
Chief Complaint: L CHEST PAIN BETTER OCC TIGHT SMOKER & WILL TRY TO STOP Notes Reviewed: Yes Events from last night noted and discussed with Clinical Staff Current Medication List: Reviewed Currently: Reports: Cough, Wheezing, Tobacco Use/Hx DVT Prophylaxis: Yes - Physical Examination Vital Signs and I&O: Last Vital Signs Temp 98.4 F 03/06/16 07:48 Pulse 91 03/06/16 09:13 Resp 20 03/06/16 07:48 BP 94/52 L 03/06/16 07:48 Pulse Ox 93 03/06/16 07:48 Oxygen Pulse Oxygen Saturation 93 O2 Device Nasal Cannula Oxygen Flow Rate 2 Fraction of Inspired Oxygen ( FIO2) Intake & Output 03/03/16 03/04/16 03/05/16 03/06/16 23:59 23:59 23:59 23:59 Intake Total 2590 2780 Output Total 1100 2450 Balance 1490 330 Patient's weight 52.753 kg 54.431 kg General: Alert, Oriented x3, No acute distress, Well appearing, Well nourished HEENT: Normal (Normocephalic, atraumatic;EOMI.Sclera white, Nares patent, without discharge or bleeding. No oropharyngeal lesions or erythema. Mucous membranes are dry.) Neck: Non-tender, Full range of motion, Normal Trachea alignment, Normal inspection (No cervical lymphadenopathy. No supraclavicular lymphadenopathy.), No Masses palpable, Supple Lymphatics: Normal (No lymph node swelling or pain.) Respiratory: Diminished, Wheezes (FAINT EXP WHEEZE). negative: Rales, Rhonchi Cardiovascular: Regular rate and rhythm (No bradycardia or tachycardia), Normal S1, No Gallops,Rubs/Murmurs, Normal S2, Good Pedal Pulses (DP pulses 2+ bilaterally) GI: Normal bowel sounds (normal active sounds), Soft (non-distended), Non tender , No hepatospenomegaly, No masses Extremities/Musculoskeletal: Normal pulses (DP pulses 2+ bilaterally) Skin: Warm,Dry and Intact, No rashes, No significant lesion Neurological: Strength at 5/5 X4 ext (Motor 5/5 throughout.), Normal tone, Cranial nerves 3-12 NL ( 2-12 grossly intact.) Psych/Mental Status: Appropriate, Normal Affect Lab/DI/Studies Reviewed: 03/06/16 02:42 03/06/16 02:42 Laboratory Results - last 24 hr 03/05/16 03/05/16 03/05/16 10:30 12:01 13:00 WBC 22.9 H RBC 4.31 Hgb 13.6 Hct 40.7 MCV 95 MCH 31.6 MCHC 33.4 RDW 12.7 Plt Count 227 MPV 8.3 Neut % (Auto) Cancelled Lymph % (Auto) Cancelled [place] % (Auto) Cancelled Eos % (Auto) Cancelled Baso % (Auto) Cancelled Absolute Neuts (auto) Cancelled Absolute Lymphs (auto) Cancelled Seg Neuts % (Manual) 89 H Band Neutrophils % 0 Lymphocytes % (Manual) 10 L Monocytes % (Manual) 1 Absolute Neutrophils 20.38 H Absolute Lymphocytes 2.29 Platelet Estimate Norm RBC Morphology Norm Puncture Site Left radial pH 7.460 H pCO2 32.0 L pO2 74.0 L HCO3 22.8 Total CO2 23.8 Base Excess -0.3 FiO2 % 21% Specimen Drawn By [place] Sodium Potassium Chloride Carbon Dioxide Anion Gap BUN Creatinine Estimated GFR (MDRD) Glucose Calculated Osmolality Calcium Troponin I < 0.01 Urine Color Urine Clarity Urine pH Ur Specific [place] Urine Protein Urine Glucose (UA) Urine Ketones Urine Occult Blood Urine Nitrite Urine Bilirubin Urine Urobilinogen Ur Leukocyte Esterase Urine RBC Urine WBC Ur Epithelial Cells Urine Bacteria 03/05/16 03/06/16 03/06/16 13:45 02:42 02:42 WBC 14.7 H RBC 3.71 L Hgb 11.8 L D Hct 35.3 L MCV 95 MCH 31.8 MCHC 33.4 RDW 12.8 Plt Count 200 MPV 9.3 Neut % (Auto) Lymph % (Auto) [place] % (Auto) Eos % (Auto) Baso % (Auto) Absolute Neuts (auto) Absolute Lymphs (auto) Seg Neuts % (Manual) Band Neutrophils % Lymphocytes % (Manual) Monocytes % (Manual) Absolute Neutrophils Absolute Lymphocytes Platelet Estimate RBC Morphology Puncture Site pH pCO2 pO2 HCO3 Total CO2 Base Excess FiO2 % Specimen Drawn By Sodium 141 Potassium 4.6 Chloride 113 H Carbon Dioxide 21 L Anion Gap 12 BUN 11 Creatinine 0.60 Estimated GFR (MDRD) > 60 Glucose 130 H Calculated Osmolality 272 Calcium 8.5 Troponin I Urine Color Yellow Urine Clarity Clear Urine pH 6.0 Ur Specific [place] 1.010 Urine Protein Neg Urine Glucose (UA) Neg Urine Ketones Neg Urine Occult Blood Neg Urine Nitrite Neg Urine Bilirubin Neg Urine Urobilinogen 0.2 Ur Leukocyte Esterase Neg Urine RBC 0-2 Urine WBC 0-2 Ur Epithelial Cells Occ Urine Bacteria Few - Assessment (1) Pneumonia Acute J18.9 - PNEUMONIA, UNSPECIFIED ORGANISM Qualifiers: Pneumonia type: due to unspecified organism Aspiration pneumonia type: A Laterality: left Lung location: lower lobe of lung Qualified Code(s): J18.1 - Lobar pneumonia, unspecified organism Comment/Plan: She is a community-acquired left lingular pneumonia. Criteria for diagnosis is chest x-ray abnormality, increased cough and sputum production. Treat empirically with IV Rocephin and azithromycin, in addition to aggressive pulmonary toileting by respiratory therapy as mentioned below. Evidence based care pneumonia order set has been utilized. Pneumonia education will also be provided. Shirley Q ordered. (2) COPD exacerbation Acute J44.1 - CHRONIC OBSTRUCTIVE PULMONARY DISEASE W (ACUTE) EXACERBATION Comment/Plan: Patient is an active smoker. Not on oxygen at home. She will be provided supplemental oxygen, IV steroid dose and taper, as well as empiric IV antibiotics as mentioned above for her community-acquired pneumonia. Respiratory therapy has been consulted, for aggressive pulmonary toileting. (3) Chest pain Acute R07.9 - CHEST PAIN, UNSPECIFIED Qualifiers: Chest pain type: chest pain on breathing Ischemic chest pain type: I Qualified Code(s): R07.1 - Chest pain on breathing Comment/Plan: Unlikely to be cardiac given the fact that it is clearly worse with coughing or deep inspiration. Troponins are also negative. (4) Supraventricular tachycardia Acute I47.1 - SUPRAVENTRICULAR TACHYCARDIA Comment/Plan: She has a known history of SVT, heart rate is now under control after several doses of amiodarone in the emergency department. She also be given copious IV fluids. Due to her relative hypotension, will need to avoid beta blockade at this time. She has seen Dr. Rouse in the past due to her SVT, if this becomes a major issue Cardiology could be consulted while in the hospital. (5) Tobacco abuse Chronic Z72.0 - TOBACCO USE Comment/Plan: Discuss smoking cessation and indicated to me she would try to quit. She agreed to take Wellbutrin SR 150 q.day. Case Care Discussed with: Patient, Nursing Staff, Resource Management Education/Counseling Given To: Patient Education/Counseling Given Regarding: Diagnosis Total Time: 37 plus 10 min discussing smoking cessation Critical Care: No Code: 10867 (12+) (407)
[2016-03-06] MEDS: PROBIOTIC BLEND TAB PO SCH ×2 (11:48→17:21)
[2016-03-06] MEDS: CEFTRIAXONE 1 GM in D5W 100 ML IV SCH (11:48)
[2016-03-06] MEDS: VITAMINS, MULTIPLE CAP PO SCH (13:22)
[2016-03-06] MEDS: CHOLECALCIFEROL 1000 UNITS TAB PO SCH (13:22)
[2016-03-06] MEDS: BuPROPion 150 MG SR TAB PO SCH (13:22)
[2016-03-06] MEDS: ENOXAPARIN 40 MG/0.4 ML PFS SQ SCH (17:21)
[2016-03-06] MEDS ORDERED: NICOTINE 21 MG PATCH TOP PRN (18:42)
[2016-03-06] MEDS: PRAVASTATIN 20 MG TAB PO SCH (21:24)
[2016-03-07 03:55] LABS: MPV 9.2 fL (7.4-10.4)
[2016-03-07 04:10] LABS: BLOOD UREA NITROGEN 13 MG/DL (7-17); CALCIUM 9.2 MG/DL (8.4-10.2); CALCULATED OSMOLALITY 275 MOs/Kg (270-290); CHLORIDE 111 mEq/L (98-107); GLUCOSE 140 MG/DL (70-99); SODIUM LEVEL 142 mEq/L (137-146)
[2016-03-07] MEDS: METHYLPREDNISOLONE 125 MG/2 ML VIAL IV SCH ×3 (04:48→17:10)
[2016-03-07] MEDS: ACETAMINOPHEN 325 MG/TAB TABLET PO PRN (04:56)
[2016-03-07] MEDS ORDERED: PNEUMOCOCCAL 0.5 ML VIAL IM ONE (08:00)
[2016-03-07] MEDS: BuPROPion 150 MG SR TAB PO SCH (08:13)
[2016-03-07] MEDS: AZITHROMYCIN 500 MG in D5W 250 ML IV SCH (09:12)
[2016-03-07] MEDS: VITAMINS, MULTIPLE CAP PO SCH (11:08)
[2016-03-07] MEDS: PROBIOTIC BLEND TAB PO SCH ×2 (11:08→17:10)
[2016-03-07] MEDS: CEFTRIAXONE 1 GM in D5W 100 ML IV SCH (11:08)
[2016-03-07] MEDS: CHOLECALCIFEROL 1000 UNITS TAB PO SCH (11:09)
--- NOTE | 2016-03-07 11:25 | GENMEDPROG ---
Chief Complaint: coughing sl better sob better sputum clearer Notes Reviewed: Yes Events from last night noted and discussed with Clinical Staff Current Medication List: Reviewed Currently: Reports: Cough, Wheezing, Tobacco Use/Hx DVT Prophylaxis: Yes - Physical Examination Vital Signs and I&O: Last Vital Signs Temp 98.3 F 03/07/16 08:00 Pulse 74 03/07/16 10:10 Resp 18 03/07/16 08:00 BP 85/61 L 03/07/16 08:00 Pulse Ox 92 03/07/16 08:00 Oxygen Pulse Oxygen Saturation 92 O2 Device Room Air Oxygen Flow Rate 2 Fraction of Inspired Oxygen ( FIO2) Intake & Output 03/04/16 03/05/16 03/06/16 03/07/16 23:59 23:59 23:59 23:59 Intake Total 2590 4932 360 Output Total 1100 5950 300 Balance 1490 -1018 60 Patient's weight 52.753 kg 54.431 kg 55.656 kg General: Alert, Oriented x3, No acute distress, Well appearing, Well nourished HEENT: Normal (Normocephalic, atraumatic;EOMI.Sclera white, Nares patent, without discharge or bleeding. No oropharyngeal lesions or erythema. Mucous membranes are dry.) Neck: Non-tender, Full range of motion, Normal Trachea alignment, Normal inspection (No cervical lymphadenopathy. No supraclavicular lymphadenopathy.), No Masses palpable, Supple Lymphatics: Normal (No lymph node swelling or pain.) Respiratory: Diminished, Wheezes (FAINT EXP WHEEZE). negative: Rales, Rhonchi Cardiovascular: Regular rate and rhythm (No bradycardia or tachycardia), Normal S1, No Gallops,Rubs/Murmurs, Normal S2, Good Pedal Pulses (DP pulses 2+ bilaterally) GI: Normal bowel sounds (normal active sounds), Soft (non-distended), Non tender , No hepatospenomegaly, No masses Extremities/Musculoskeletal: Normal pulses (DP pulses 2+ bilaterally) Skin: Warm,Dry and Intact, No rashes, No significant lesion Neurological: Strength at 5/5 X4 ext (Motor 5/5 throughout.), Normal tone, Cranial nerves 3-12 NL ( 2-12 grossly intact.) Psych/Mental Status: Appropriate, Normal Affect Lab/DI/Studies Reviewed: 03/07/16 03:35 03/07/16 03:35 Laboratory Results - last 24 hr 03/06/16 03/07/16 03/07/16 15:29 03:35 03:35 WBC 20.0 H RBC 3.52 L Hgb 11.3 L Hct 33.6 L MCV 95 MCH 32.0 MCHC 33.5 RDW 13.0 Plt Count 205 MPV 9.2 Sodium 142 Potassium 4.1 Chloride 111 H Carbon Dioxide 24 Anion Gap 11 BUN 13 Creatinine 0.60 Estimated GFR (MDRD) > 60 Glucose 140 H POC Capillary Glucose 187 H Calculated Osmolality 275 Calcium 9.2 - Assessment (1) Pneumonia Acute J18.9 - PNEUMONIA, UNSPECIFIED ORGANISM Qualifiers: Pneumonia type: due to unspecified organism Aspiration pneumonia type: A Laterality: left Lung location: lower lobe of lung Qualified Code(s): J18.1 - Lobar pneumonia, unspecified organism Comment/Plan: She is a community-acquired left lingular pneumonia. Criteria for diagnosis is chest x-ray abnormality, increased cough and sputum production. Treat empirically with IV Rocephin and azithromycin, in addition to aggressive pulmonary toileting by respiratory therapy as mentioned below. Evidence based care pneumonia order set has been utilized. Pneumonia education will also be provided. Shirley Q ordered. (2) COPD exacerbation Acute J44.1 - CHRONIC OBSTRUCTIVE PULMONARY DISEASE W (ACUTE) EXACERBATION Comment/Plan: Patient is an active smoker. Not on oxygen at home. She will be provided supplemental oxygen, IV steroid dose and taper, as well as empiric IV antibiotics as mentioned above for her community-acquired pneumonia. Respiratory therapy has been consulted, for aggressive pulmonary toileting. (3) Chest pain Acute R07.9 - CHEST PAIN, UNSPECIFIED Qualifiers: Chest pain type: chest pain on breathing Ischemic chest pain type: I Qualified Code(s): R07.1 - Chest pain on breathing Comment/Plan: Unlikely to be cardiac given the fact that it is clearly worse with coughing or deep inspiration. Troponins are also negative. (4) Supraventricular tachycardia Acute I47.1 - SUPRAVENTRICULAR TACHYCARDIA Comment/Plan: She has a known history of SVT, heart rate is now under control after several doses of amiodarone in the emergency department. She also be given copious IV fluids. Due to her relative hypotension, will need to avoid beta blockade at this time. She has seen Dr. Rouse in the past due to her SVT, if this becomes a major issue Cardiology could be consulted while in the hospital. (5) Tobacco abuse Chronic Z72.0 - TOBACCO USE Comment/Plan: Discuss smoking cessation and indicated to me she would try to quit. She agreed to take Wellbutrin SR 150 q.day. Case Care Discussed with: Patient, Nursing Staff, Resource Management Education/Counseling Given To: Patient, Family Member Education/Counseling Given Regarding: Diagnosis, Treatment Total Time: 41 min Critical Care: No Code: 19466 (12+)
[2016-03-07] MEDS: ENOXAPARIN 40 MG/0.4 ML PFS SQ SCH (17:10)
[2016-03-07] MEDS: PRAVASTATIN 20 MG TAB PO SCH (20:37)
[2016-03-08] MEDS: METHYLPREDNISOLONE 125 MG/2 ML VIAL IV SCH ×3 (02:24→17:31)
[2016-03-08 04:43] LABS: MPV 9.1 fL (7.4-10.4)
[2016-03-08 04:51] LABS: BLOOD UREA NITROGEN 15 MG/DL (7-17); CALCULATED OSMOLALITY 275 MOs/Kg (270-290); CHLORIDE 106 mEq/L (98-107); GLUCOSE 117 MG/DL (70-99); SODIUM LEVEL 142 mEq/L (137-146)
[2016-03-08] MEDS: BuPROPion 150 MG SR TAB PO SCH (08:16)
[2016-03-08] MEDS: METOPROLOL TARTRATE 25 MG TAB PO SCH ×2 (10:20→20:44)
[2016-03-08] MEDS: AZITHROMYCIN 500 MG in D5W 250 ML IV SCH (10:23)
[2016-03-08] MEDS: CHOLECALCIFEROL 1000 UNITS TAB PO SCH (12:21)
[2016-03-08] MEDS: PROBIOTIC BLEND TAB PO SCH ×2 (12:21→17:31)
[2016-03-08] MEDS: VITAMINS, MULTIPLE CAP PO SCH (12:22)
[2016-03-08] MEDS: CEFTRIAXONE 1 GM in D5W 100 ML IV SCH (12:22)
[2016-03-08] MEDS: ENOXAPARIN 40 MG/0.4 ML PFS SQ SCH (17:31)
[2016-03-08] MEDS: PRAVASTATIN 20 MG TAB PO SCH (20:46)
--- NOTE | 2016-03-08 22:20 | GENMEDPROG ---
Chief Complaint: Left sided chest pain mild improvement shortness breath Notes Reviewed: Yes Events from last night noted and discussed with Clinical Staff Current Medication List: Reviewed Currently: Reports: Cough, Wheezing, Tobacco Use/Hx DVT Prophylaxis: Yes - Physical Examination Vital Signs and I&O: Last Vital Signs Temp 98.6 F 03/08/16 20:00 Pulse 53 L 03/08/16 22:00 Resp 18 03/08/16 21:03 BP 104/65 03/08/16 20:00 Pulse Ox 97 03/08/16 21:03 Oxygen Pulse Oxygen Saturation 97 O2 Device Nasal Cannula Oxygen Flow Rate 1 Fraction of Inspired Oxygen ( FIO2) Intake & Output 03/05/16 03/06/16 03/07/16 03/08/16 23:59 23:59 23:59 23:59 Intake Total 2590 4932 1510 987 Output Total 1100 5950 1700 2750 Balance 7116 -0475 -190 -8499 Patient's weight 52.753 kg 54.431 kg 55.656 kg 56.155 kg General: Alert, Oriented x3, No acute distress, Well appearing, Well nourished HEENT: Normal (Normocephalic, atraumatic;EOMI.Sclera white, Nares patent, without discharge or bleeding. No oropharyngeal lesions or erythema. Mucous membranes are dry.) Neck: Non-tender, Full range of motion, Normal Trachea alignment, Normal inspection (No cervical lymphadenopathy. No supraclavicular lymphadenopathy.), No Masses palpable, Supple Lymphatics: Normal (No lymph node swelling or pain.) Respiratory: Diminished, Wheezes (FAINT EXP WHEEZE). negative: Rales, Rhonchi Cardiovascular: Regular rate and rhythm (No bradycardia or tachycardia), Normal S1, No Gallops,Rubs/Murmurs, Normal S2, Good Pedal Pulses (DP pulses 2+ bilaterally) GI: Normal bowel sounds (normal active sounds), Soft (non-distended), Non tender , No hepatospenomegaly, No masses Extremities/Musculoskeletal: Normal pulses (DP pulses 2+ bilaterally) Skin: Warm,Dry and Intact, No rashes, No significant lesion Neurological: Strength at 5/5 X4 ext (Motor 5/5 throughout.), Normal tone, Cranial nerves 3-12 NL ( 2-12 grossly intact.) Psych/Mental Status: Appropriate, Normal Affect Lab/DI/Studies Reviewed: 03/08/16 04:15 03/08/16 04:15 Laboratory Results - last 24 hr 03/08/16 03/08/16 03/08/16 04:15 04:15 04:15 WBC 19.8 H RBC 3.75 L Hgb 11.9 L Hct 35.9 L MCV 96 MCH 31.9 MCHC 33.2 RDW 13.2 Plt Count 233 MPV 9.1 Sodium 142 Potassium 4.1 Chloride 106 Carbon Dioxide 28 Anion Gap 12 BUN 15 Creatinine 0.70 Estimated GFR (MDRD) > 60 Glucose 117 H Calculated Osmolality 275 Calcium 9.0 Magnesium 2.20 - Assessment (1) Pneumonia Acute J18.9 - PNEUMONIA, UNSPECIFIED ORGANISM Qualifiers: Pneumonia type: due to unspecified organism Aspiration pneumonia type: A Laterality: left Lung location: lower lobe of lung Qualified Code(s): J18.1 - Lobar pneumonia, unspecified organism Comment/Plan: She is a community-acquired left lingular pneumonia. Criteria for diagnosis is chest x-ray abnormality, increased cough and sputum production. Treat empirically with IV Rocephin and azithromycin, in addition to aggressive pulmonary toileting by respiratory therapy as mentioned below. Evidence based care pneumonia order set has been utilized. Pneumonia education will also be provided. Shirley Q ordered. (2) COPD exacerbation Acute J44.1 - CHRONIC OBSTRUCTIVE PULMONARY DISEASE W (ACUTE) EXACERBATION Comment/Plan: Patient is an active smoker. Not on oxygen at home. She will be provided supplemental oxygen, IV steroid dose and taper, as well as empiric IV antibiotics as mentioned above for her community-acquired pneumonia. Respiratory therapy has been consulted, for aggressive pulmonary toileting. (3) Chest pain Acute R07.9 - CHEST PAIN, UNSPECIFIED Qualifiers: Chest pain type: chest pain on breathing Ischemic chest pain type: I Qualified Code(s): R07.1 - Chest pain on breathing Comment/Plan: Unlikely to be cardiac given the fact that it is clearly worse with coughing or deep inspiration. Troponins are also negative. (4) Supraventricular tachycardia Acute I47.1 - SUPRAVENTRICULAR TACHYCARDIA Comment/Plan: She has a known history of SVT and had 2 episodes this morning. Lopressor was re-initiated 12.5 mg p.o. twice daily. (5) Tobacco abuse Chronic Z72.0 - TOBACCO USE Comment/Plan: Discuss smoking cessation and indicated to me she would try to quit. She agreed to take Wellbutrin SR 150 q.day and transdermal nicotine patch. Case Care Discussed with: Patient, Nursing Staff, Resource Management Education/Counseling Given To: Patient Education/Counseling Given Regarding: Diagnosis, Treatment Total Time: 39 min Critical Care: No Code: 02635 (12+)
[2016-03-09] MEDS: METHYLPREDNISOLONE 125 MG/2 ML VIAL IV SCH ×2 (02:30→08:29)
[2016-03-09 05:58] LABS: MPV 9.4 fL (7.4-10.4)
[2016-03-09 06:22] LABS: BLOOD UREA NITROGEN 17 MG/DL (7-17); CALCIUM 8.9 MG/DL (8.4-10.2); CALCULATED OSMOLALITY 271 MOs/Kg (270-290); CHLORIDE 103 mEq/L (98-107); GLUCOSE 96 MG/DL (70-99); SODIUM LEVEL 140 mEq/L (137-146)
[2016-03-09] MEDS: AZITHROMYCIN 500 MG in D5W 250 ML IV SCH (08:30)
[2016-03-09] MEDS: BuPROPion 150 MG SR TAB PO SCH (08:30)
[2016-03-09] MEDS: METOPROLOL TARTRATE 25 MG TAB PO SCH (08:31)
--- NOTE | 2016-03-09 11:03 | PCM.DCS92 ---
- Final/Secondary Discharge Diagnosis (1) Pneumonia Acute J18.9 - PNEUMONIA, UNSPECIFIED ORGANISM Present on Admission: Yes due to unspecified organism A left lower lobe of lung J18.1 - Lobar pneumonia, unspecified organism Comment: She is a community-acquired left lingular pneumonia. Criteria for diagnosis is chest x-ray abnormality, increased cough and sputum production. Treat empirically with IV Rocephin and azithromycin, in addition to aggressive pulmonary toileting by respiratory therapy as mentioned below. Evidence based care pneumonia order set has been utilized. Pneumonia education will also be provided. Shirley Q ordered. (2) COPD exacerbation Acute J44.1 - CHRONIC OBSTRUCTIVE PULMONARY DISEASE W (ACUTE) EXACERBATION Present on Admission: Yes Comment: Patient is an active smoker. Not on oxygen at home. She will be provided supplemental oxygen, IV steroid dose and taper, as well as empiric IV antibiotics as mentioned above for her community-acquired pneumonia. Respiratory therapy has been consulted, for aggressive pulmonary toileting. (3) Chest pain Acute R07.9 - CHEST PAIN, UNSPECIFIED Present on Admission: Yes chest pain on breathing I R07.1 - Chest pain on breathing Comment: Unlikely to be cardiac given the fact that it is clearly worse with coughing or deep inspiration. Troponins are also negative. (4) Supraventricular tachycardia Acute I47.1 - SUPRAVENTRICULAR TACHYCARDIA Present on Admission: Yes Comment: She has a known history of SVT and had 2 episodes this morning. Lopressor was re-initiated 12.5 mg p.o. twice daily. (5) Tobacco abuse Chronic Z72.0 - TOBACCO USE Present on Admission: Yes Comment: Discuss smoking cessation and indicated to me she would try to quit. She agreed to take Wellbutrin SR 150 q.day and transdermal nicotine patch. Discharge Disposition: Home Discharge Condition: Improved Cognitive Discharge Status: Unimpaired Fuctional Discharge Status: Independent Physician Follow up/Referrals: Dada Luevano MD [NonStaff] - One Week Home Medications / New Prescriptions: New Azithromycin [Zithromax Tri-Rob] 500 mg PO DAILY #3 tablet BuPROPion (BID formulation) [Wellbutrin-Sr] 150 mg PO DAILY #30 tab.sr.12h Cefdinir [Omnicef] 300 mg PO BID #10 cap Metoprolol Tartrate [Lopressor] 12.5 mg PO BID #60 tablet Nicotine [Nicoderm] 14 mg TOP Q24H PRN #30 pat PRN Reason: Smoking Cessation Probiotic Blend [Shirley Q] 1 tab PO BIDLS #30 tablet Continue Multivitamin [Daily Vitamin] 1 each PO DAILY Mometasone/Formoterol [Dulera 200 Mcg/5 Mcg Inhaler] 2 puff IH BID PRN PRN Reason: Shortness Of Breath Cholecalciferol (Vitamin D3) [D3-1999] 1,000 unit PO DAILY Pravastatin Sodium 10 mg PO HS Discharge Home Medication List Cholecalciferol (Vitamin D3) [D3-2000] 1,000 unit PO DAILY 07/22/13 [History Confirmed 03/05/16 Last Taken 03/04/16] Mometasone/Formoterol [Dulera 200 Mcg/5 Mcg Inhaler] 2 puff IH BID PRN 07/22/13 [History Confirmed 03/05/16 Last Taken 03/04/16] Multivitamin [Daily Vitamin] 1 each PO DAILY 07/22/13 [History Confirmed Last Taken 03/05/16] Pravastatin Sodium 10 mg PO HS 03/05/16 [History Confirmed 03/05/16 Last Taken 03/04/16] Azithromycin [Zithromax Tri-Rob] 500 mg PO DAILY #3 tablet 03/09/16 [Rx Last Taken Unknown] BuPROPion (BID formulation) [Wellbutrin-Sr] 150 mg PO DAILY #30 tab.sr.12h 03/09 [Rx Last Taken Unknown] Cefdinir [Omnicef] 300 mg PO BID #10 cap 03/09/16 [Rx Last Taken Unknown] Metoprolol Tartrate [Lopressor] 12.5 mg PO BID #60 tablet 03/09/16 [Rx Last Taken Unknown] Nicotine [Nicoderm] 14 mg TOP Q24H PRN #30 pat 03/09/16 [Rx Last Taken Unknown] Probiotic Blend [Shirley Q] 1 tab PO BIDLS #30 tablet 03/09/16 [Rx Last Taken Unknown] 03/09/16 04:55 03/09/16 04:55 Laboratory Results - last 24 hr 03/09/16 03/09/16 04:55 04:55 WBC 13.9 H RBC 3.89 L Hgb 12.3 Hct 37.3 MCV 96 MCH 31.6 MCHC 33.0 RDW 13.1 Plt Count 257 MPV 9.4 Sodium 140 Potassium 4.3 Chloride 103 Carbon Dioxide 29 Anion Gap 12 BUN 17 Creatinine 0.70 Estimated GFR (MDRD) > 60 Glucose 96 Calculated Osmolality 271 Calcium 8.9 O2 Device: Room Air Additional Instructions: REST AND PLENTY OF FLUIDS. IF YOU WORSEN, RETURN TO ED OR CALL PCP. Diet at Discharge: As Tolerated Activity: As Tolerated Discontinue use of:: Alcohol, All Types of Tobacco - DC Summary Notes Hospital Course Note:: Discharge summary on patient named CRISTI VILCHIS admitted to [facility] on 03/05/16 by Van Goddard MD. Date of discharge is []. Total Time: 40 Code: 30368 (>30min.) - Physical Exam Vital Signs: Last Vital Signs Temp 98.6 F 03/09/16 08:40 Pulse 63 03/09/16 10:22 Resp 20 03/09/16 08:40 BP 114/58 L 03/09/16 08:40 Pulse Ox 87 L 03/09/16 09:43 Oxygen Pulse Oxygen Saturation 87 O2 Device Room Air Oxygen Flow Rate 1 Fraction of Inspired Oxygen ( FIO2) Constitutional: No apparent distress, Alert Oriented to: Time, Person, Place - HEENT Head: Normal (normocephalic,atraumatic, trachea midline) Eye: Normal (EOMI, Sclera white) Oropharynx: Normal (moist) ENT EAC: Normal (No oropharyngeal lesions or erythema. Mucous membranes are dry. ) TMJ: Normal Nose: No Symptoms Reported (without discharge or bleeding) - Respiratory/Cardiovascular Respiratory: Diminished, Wheezes (FAINT EXP WHEEZE). negative: Rales, Rhonchi Cardiovascular: Normal (RRR , Normal S1, S2. No murmurs, rubs, or gallops. PMI non-displaced. Carotids: no carotid bruits. No bradycardia or tachycardia. DP pulses 2+ bilaterally.) - GI Auscultation: Normal (normal active sounds) Palpation: Normal (soft, non distended and nontender) Tenderness: Non tender (No rebound or guarding) Dacosta's Sign: Negative - Exam Deferred: Yes - Musculoskeletal Back: Normal (Non-Tender) Extremities: Normal (normal tone, no cyanosis or edema) - Integumentary Skin: Normal (Warm dry no rashes) Lymphatics: Normal (No lymph node swelling or pain.) - Neurologic Memory Impaired: Normal Motor Function: Normal (Motor 5/5 throughout.Normal tone, Pulses 2+ No cyanosis or edema, FROM) Cranial Nerve: Normal (CN II-XII intact sensation, strength 5/5) Cerebellar: Normal (Babinski: toes downgoing bilaterally. Intact Finger to nose. Sensory grossly intact to light touch. Intact rapid alternating movements bilaterally. No pronator drift.) Mood Description: Normal (Fully oriented and appropiate affect) Perception: Normal (Normal and appropriate affect.)
[2016-03-09] MEDS: CHOLECALCIFEROL 1000 UNITS TAB PO SCH (11:19)
[2016-03-09] MEDS: VITAMINS, MULTIPLE CAP PO SCH (11:19)
[2016-03-09] MEDS: PROBIOTIC BLEND TAB PO SCH (11:19)
[2016-03-09] MEDS: CEFTRIAXONE 1 GM in D5W 100 ML IV SCH (11:20)
[2016-03-09 11:56] VITALS: BP 126/64; PULSE 76; TEMP 98
== END 2016-03-09 13:05 | disposition home or self-care (01) | DRG 190 ==
LOC: ED 10:04 → PCU 15:56
PROVIDERS: ADMIT Internal Medicine; ATTEND Internal Medicine
PROC: 039C3ZZ Drainage of Left Radial Artery, Percutaneous Approach (ICD-10-PCS; principal; 2016-03-05)
DX: J44.0 Chronic obstructive pulmonary disease with (acute) lower respiratory infection (principal); J18.1 Lobar pneumonia, unspecified organism; I95.9 Hypotension, unspecified; I47.1 Supraventricular tachycardia; J44.1 Chronic obstructive pulmonary disease with (acute) exacerbation; F17.210 Nicotine dependence, cigarettes, uncomplicated; Z71.6 Tobacco abuse counseling; E78.00 Pure hypercholesterolemia, unspecified; Z79.52 Long term (current) use of systemic steroids
CPT/HCPCS: 36415; 36600; 71020; 80048; 80053; 81001; 82803; 82962; 83735; 84484; 85007; 85027; 85610; 85730; 90471; 90732; 93005; 96361; 96365; 96366; 96372; 96375; 96376; 98960; 99285; G0237; J0153; J0456; J0696; J1650; J2270; J2930; J3490; J7040; J7060; J7070